=== PATIENT | female | born 1955 | race Caucasian/White ===

== ENCOUNTER 2023-01-22 11:25 | Outpatient (CLI) | payer MEDICARE | END 2023-01-22 11:26 | disposition home or self-care (01) | LOC: CSHMAMMO 11:25 | PROVIDERS: ATTEND Internal Medicine Hematology & Oncology | DX: Z13.820 Encounter for screening for osteoporosis (principal); C50.111 Malignant neoplasm of central portion of right female breast; M81.0 Age-related osteoporosis without current pathological fracture; M85.851 Other specified disorders of bone density and structure, right thigh; M85.852 Other specified disorders of bone density and structure, left thigh | CPT/HCPCS: 77080 ==

== ENCOUNTER 2023-03-27 12:53 | Outpatient (CLI) | payer MEDICARE | END 2023-03-27 12:54 | disposition home or self-care (01) | LOC: CSHMAMMO 12:53 | PROVIDERS: ATTEND Internal Medicine Hematology & Oncology | DX: C50.111 Malignant neoplasm of central portion of right female breast (principal) | CPT/HCPCS: 77066; G0279 ==

== ENCOUNTER 2024-02-16 10:40 | Outpatient (CLI) | payer MEDICARE | END 2024-02-16 10:41 | disposition home or self-care (01) | LOC: CSHMRI 10:40 | PROVIDERS: ATTEND Podiatrist | DX: D16.9 Benign neoplasm of bone and articular cartilage, unspecified (principal); M79.674 Pain in right toe(s); R93.6 Abnormal findings on diagnostic imaging of limbs ==